=== PATIENT | male | born 2000 | race Caucasian/White ===

== ENCOUNTER 2020-07-27 12:19 | Outpatient (REF) | payer BC, SELFPAY ==
[2020-07-27 16:41] LABS: SARS COV2 PCR INHOUSE NEGATIVE (Negative)
== END 2020-07-27 12:20 | disposition home or self-care (01) ==
LOC: HO.LAB 12:19
PROVIDERS: Visit Provider Internal Medicine
DX: Z20.822 Contact with and (suspected) exposure to COVID-19 (principal)
CPT/HCPCS: U0003

== ENCOUNTER 2020-07-31 09:45 | Outpatient (REF) | payer BC, SELFPAY ==
[2020-07-31 13:38] LABS: SARS COV2 PCR INHOUSE POSITIVE (Negative)
== END 2020-07-31 09:46 | disposition home or self-care (01) ==
LOC: HO.LAB 09:45
PROVIDERS: Visit Provider Internal Medicine
DX: Z20.822 Contact with and (suspected) exposure to COVID-19 (principal)
CPT/HCPCS: C9803; U0003

== ENCOUNTER 2021-03-27 10:03 | Outpatient (REF) | payer BC, SELFPAY ==
[2021-03-27 10:34] LABS: COVID-19 Test Negative (Negative)
== END 2021-03-27 10:04 | disposition home or self-care (01) ==
LOC: HO.LAB 10:03
PROVIDERS: Visit Provider Internal Medicine
DX: Z20.822 Contact with and (suspected) exposure to COVID-19 (principal)
CPT/HCPCS: 36415; 87635; C9803